=== PATIENT | male | born 1960 | race Caucasian/White ===

== ENCOUNTER 2017-01-16 21:03 | Emergency (ER) | payer BC ==
--- NOTE | 2017-01-16 21:25 | EDM.PDOC ---
ED HPI GENERAL MEDICAL PROBLEM - General Chief Complaint: Diabetic Complaint Stated Complaint: LOW BLOOD SUGAR Time Seen by Provider: 01/16/17 21:05 Source of Information: Reports: Patient, EMS, EMS notes reviewed History Limitations: Reports: No limitations - History of Present Illness INITIAL COMMENTS - FREE TEXT/NARRATIVE: Ramiro is a Type I DM with an insulin pump and monitor who was visiting the [facility] in [facility] around 5:30-6:00 pm when he checked his monitor and viewed a 75 mg% reading. He knew he should have a beverage soon to avoid a hypoglycemic reaction, but he doesn't remember an intervention after that. He subsequently becamed confused during the evening, EMS summoned, stat BS 39 mg%. He was given sugar with OJ, and had clinical improvement in minutes. He was transported to [facility] ED by EMS for assessment. Upon arrival, he is asx, non FBS 118 mg%. - Related Data Allergies Allergy/AdvReac Type Severity Reaction Status Date / Time No Known Allergies Allergy Verified 01/16/17 21:35 Home Meds: Home Meds Insulin Pump Cartridge [Omnipod] 1 each SQ ASDIRECTED 01/16/17 [History] Lisinopril 10 mg PO DAILY 01/16/17 [History] Simvastatin [Zocor] 20 mg PO BEDTIME 01/16/17 [History] Past Medical History Musculoskeletal History: Reports: Other (see below) (osteomyleitis L foot, status post amputation of all toes) Neurological History: Reports: Neuropathy, peripheral Endocrine/Metabolic History: Reports: Diabetes, type I ED ROS GENERAL - Review of Systems Review Of Systems: See Below Constitutional: Reports: weakness HEENT: Reports: No symptoms Respiratory: Reports: No Symptoms Cardiovascular: Reports: No symptoms Endocrine: Reports: fatigue, low glucose GI/Abdominal: Reports: No symptoms : Reports: no symptoms Musculoskeletal: Reports: no symptoms Skin: Reports: no symptoms Neurological: Reports: Numbness (UE and LE), Pre-Existing Deficit Psychiatric: Reports: No symptoms Hematologic/Lymphatic: Reports: no symptoms Immunologic: Reports: no symptoms ED EXAM, GENERAL - Physical Exam Exam: See Below Exam Limited By: No limitations General Appearance: alert, WD/WN, no apparent distress Eye Exam: bilateral eye: normal inspection Ears: normal external exam Nose: normal inspection Throat/Mouth: Normal inspection Head: normocephalic Neck: normal inspection, supple, non-tender Respiratory/Chest: lungs clear, normal breath sounds Cardiovascular: regular rate, rhythm GI/Abdominal: normal bowel sounds, soft, non tender, no organomegaly (Male) Exam: Deferred Rectal (Males) Exam: Deferred Back Exam: normal inspection Extremities: other (short leg cast overlying L lower leg) Neurological: alert, oriented, CN II-XII intact, sensory/motor deficit (chronic) Psychiatric: normal affect, normal mood Skin Exam: Warm, Dry, Intact Lymphatic: no adenopathy Course - Vital Signs Text/Narrative:: Ramiro remained stable at the [facility] ED. He was given sweetened beverages while await lab reports: CBC noted Hgb 14.2 gm, WBC 10,300, plts normal; BMP noting non FBS 138 mg%, UA contaminiated.. He remains clinically stable, and may be discharged. Last Recorded V/S: Last Vital Signs Temp 34.7 C L 01/16/17 22:16 Pulse 74 01/16/17 22:16 Resp 20 01/16/17 22:16 BP 143/87 H 01/16/17 22:16 Pulse Ox 100 01/16/17 22:16 - Orders/Labs/Meds Labs: Laboratory Tests 01/16/17 01/16/17 01/16/17 Range/Units 21:30 21:30 21:45 WBC 10.3 (4.5-12.0) X10-3/uL RBC 4.80 (4.30-5.75) x10(6)uL Hgb 14.2 (11.5-15.5) g/dL Hct 42.5 (30.0-51.3) % MCV 88.6 (80-96) fL MCH 29.6 (27.7-33.6) pg MCHC 33.4 (32.2-35.4) g/dL RDW 13.4 (11.5-15.5) % Plt Count 181 (125-369) X10(3)uL Sodium 138 (135-145) mmol/L Potassium 4.5 (3.5-5.3) mmol/L Chloride 102 (100-110) mmol/L Carbon Dioxide 29 (23-29) mmol/L BUN 21 H (5-20) mg/dL Creatinine 1.2 (0.6-1.3) mg/dL Est Cr Clr Drug Dosing 82.15 mL/min Estimated GFR (MDRD) > 60 (>60) BUN/Creatinine Ratio 17.5 (9-20) Glucose 105 (80-116) mg/dL Calcium 9.6 (8.6-10.2) mg/dL Urine Color Yellow (YELLOW) Urine Appearance Cloudy (CLEAR) Urine pH 5.0 (5.0-6.5) Ur Specific D Lo 1.020 (1.010-1.025) Urine Protein 30 H (NEGATIVE) mg/dL Urine Glucose (UA) 100 H (NEGATIVE) mg/dL Urine Ketones Negative (NEGATIVE) mg/dL Urine Occult Blood Moderate H (NEGATIVE) Urine Nitrite Negative (NEGATIVE) Urine Bilirubin Negative (NEGATIVE) Urine Urobilinogen Normal (NEGATIVE) mg/dL Ur Leukocyte Esterase Negative (NEGATIVE) Urine RBC 0-5 (0) Urine WBC 10-20 H (0) Ur Squamous Epith Cells Moderate H (NS,R,O) Urine Bacteria Moderate H (NS) Urine Sperm Many H (NS) Departure - Departure Time of Disposition: 22:25 Disposition: Home, Self-Care 01 Condition: good Clinical Impression: Hypoglycemic insulin reaction in type 1 diabetes mellitus Instructions: Hypoglycemia, Kzzm-en-Wtia Referrals: Shena Stone NP [Primary Care Provider] - Forms: ED Department Discharge Additional Instructions: activity as tolerated. No driving tonight - Problem List & Annotations (1) Hypoglycemic insulin reaction in type 1 diabetes mellitus SNOMED Code(s): 23423858, 11489124 Code(s): E10.649 - TYPE 1 DIABETES MELLITUS WITH HYPOGLYCEMIA WITHOUT COMA Status: Acute Current Visit: Yes Annotation/Comment:: Ramiro remainded stable in the ED, and was discharged home to follow up with PCP. He may not drive before tomorrow. - Problem List Review Problem List Initiated/Reviewed/Updated: Yes - Assessment/Plan Plan: Follow up with PCP.
[2017-01-16 22:17] VITALS: BP 143/87
== END 2017-01-16 22:20 | disposition home or self-care (01) ==
LOC: FB.ED 21:03
DX: E10.649 Type 1 diabetes mellitus with hypoglycemia without coma (principal); Z79.4 Long term (current) use of insulin; Z79.899 Other long term (current) drug therapy
CPT/HCPCS: 36415; 80048; 81001; 85027; 99284